=== PATIENT | female | born 1970 | race Two or more races ===

== ENCOUNTER 2025-03-19 02:33 | Emergency (ER) | payer MEDICAID ==
[~2025-03-19] VITALS: Ht 147.3 cm; Wt 60.5 kg
[2025-03-19 02:52] VITALS: O2SAT 98
--- NOTE | 2025-03-19 02:57 | ED.PDOC ---
GI ASSESSMENT HPI Comments 55-year-old female came to ER for constipation. Patient states last bowel movement was 2 days ago, and she has been constipated since then. Complaining also diffuse abdominal pain and lower back pains. States she still passes gas, but denies any nausea or vomiting. Patient's self-medicated with milk of magn esia but offered no relief. Chief Complaint: Constipation Time Seen by MD: 02:56 Reviewed Notes: Nurses Notes Allergies: Coded Allergies: No Known Drug Allergy (Verified Allergy, Unknown, 03/19/25) Information Source: Patient Mode of Arrival: Ambulatory Timing: Days Duration: Since onset Quality: Aching Vomitus: None Stool: Impaction Severity: Moderate Recent: None Recent Hx of: Abdominal Surgery Pain Location: Diffuse Associated sign and symptoms: Constipation, Abdominal Pain Review of Systems REVIEW OF SYSTEMS: No fever, no chills, or fatigue HEENT: No sore throat, no earache, no congestion, no neck pain. Cardiac: No chest pain. No palpitations. Lungs: No shortness of breath, no cough. GI: No nausea, no vomiting, no diarrhea, (+) constipation, (+) abdominal pain : No dysuria, frequency, or urgency. No hematuria. Musculoskeletal: No joint pain , no joint swelling, no extremity edema. Skin: No rash, no itching. Neuro: No headache, no dizziness, no weakness Vital Signs Vital Signs Date Time Temp Pulse Resp B/P (MAP) Pulse Ox O2 Delivery O2 Flow Rate FiO2 03/19/25 05:02 98.2 69 16 161/73 (102) 98.2 03/19/25 02:52 98 Physical Exam General: Awake, alert and oriented. No acute distress. Skin: Skin in warm, dry and intact. Appropriate color for ethnicity. Nailbeds pink with no cyanosis. HEENT: The head is normocephalic and atraumatic. Conjunctivae are clear without exudates or hemorrhage. Sclera is non-icteric. EOM are intact. No signs of nystagmus. Eyelids are normal in appearance without swelling or lesions. Oral mucosa is pink and moist Neck: The neck is supple with normal range of motion. No JVD. Cardiac: Heart rate and rhythm are normal. No murmurs, gallops, or rubs are auscultated. Respiratory: No signs of respiratory distress. Lung sounds are clear in all lobes bilaterally without rales, rhonchi, or wheezes. Abdominal: Abdomen is soft, non-tender without distention. Bowel sounds are present and normoactive in all four quadrants. Extremities: Upper and lower extremities are atraumatic in appearance without deformity or edema. Neurological: The patient is awake, alert and oriented to person, place, and time with normal speech. Speech is clear. There is no facial asymmetry. Psychiatric: Appropriate mood and affect. Good judgement and insight. No visual or auditory hallucinations. Past Medical History PAST MEDICAL HISTORY: Denies Surgical History: CHIP TESTER History: Denies all CHIP TESTER Hx Family History Family History: Reviewed,noncontributory to illness Social History Smoker: Non-Smoker Alcohol: Denies ETOH Use Drugs: Denies Drug Use Lives In: Home Was a procedure done? Was a procedure done?: No GI differential Dx Differential Diagnosis: Bowel Obstruction, Constipation, Diverticular disease, Gastritis/PUD, Gastroenteritis, Hernia, Pancreatitis, UTI X-Ray, Labs, Meds, VS Vital Signs Date Time Temp Pulse Resp B/P (MAP) Pulse Ox O2 Delivery O2 Flow Rate FiO2 03/19/25 05:02 98.2 69 16 161/73 (102) 98.2 03/19/25 02:52 98.4 90 18 161/100 (120) 98 98.4 Lab Test 03/19/25 03:30 Range/Units White Blood Count 14.4 H 4.4-10.8 10^3/uL Red Blood Count 5.02 4.0-5.20 10^6/uL Hemoglobin 15.2 12.2-16.2 g/dL Hematocrit 44.1 36.0-46.0 % Mean Corpuscular Volume 87.7 80.0-100.0 fL Mean Corpuscular Hemoglobin 30.2 28.0-32.0 pg Mean Corpuscular Hemoglobin Concent 34.4 32.0-36.0 g/dL Red Cell Distribution Width 13.8 11.8-14.3 % Platelet Count 379 140-450 10^3/uL Mean Platelet Volume 8.4 6.9-10.8 fL Neutrophils (%) (Auto) 78.1 37.0-80.0 % Lymphocytes (%) (Auto) 16.3 10.0-50.0 % Monocytes (%) (Auto) 4.8 0.0-12.0 % Eosinophils (%) (Auto) 0.2 0.0-7.0 % Basophils (%) (Auto) 0.6 0.0-2.0 % Neutrophils # (Auto) 11.3 H 1.6-8.6 10 ^3/uL Lymphocytes # (Auto) 2.4 0.4-5.4 10 ^3/uL Monocytes # (Auto) 0.7 0-1.3 10 ^3/uL Eosinophils # (Auto) 0 0-0.8 10 ^3/uL Basophils # (Auto) 0.1 0-0.2 10 ^3/uL Nucleated Red Blood Cells 0.1 % Sodium Level 138 136-145 mmol/L Potassium Level 4.4 3.5-5.1 mmol/L Chloride Level 101 98-107 mmol/L Carbon Dioxide Level 28 20-31 mmol/L Anion Gap 9 5-15 Blood Urea Nitrogen 11 9-23 mg/dL Creatinine 0.59 0.550-1.02 mg/dL Glomerular Filtration Rate Calc 105 >90 mL/min BUN/Creatinine Ratio 18.6 10.0-20.0 Serum Glucose 284 H 74-106 mg/dL Calcium Level 9.8 8.7-10.4 mg/dL PROCEDURE(s): KUB - KUB ABDOMEN SINGLE VIEW REASON: constipation ORDER NUMBER(s): [id number], ACCESSION NUMBER(s): [id number] Indication: constipation Technique: Single frontal view of the abdomen was obtained Comparison: None IMPRESSION: There are multiple air-fluid levels with dilated loops of small bowel measuring up to 3.6 cm concerning for small bowel obstruction. Moderate intracolonic stool is noted. Time of 1ST Reevaluation: 02:53 Reevaluation 1ST: Unchanged Patient Education/Counseling: Prognosis Family Education/Counseling: No Family Present Departure 1 Departure Time of Disposition: 03:20 Impression: Primary Impression: Abdominal pain Additional Impression: Constipation Disposition: 09 ADMITTED INPATIENT Additional Instructions: INSTRUCCIONES DE ABDI DE Urgencias Instrucciones: Marguerite atentamente todas las instrucciones proporcionadas en gem paquete. Aunque le hayan dado el abdi del Departamento de Emergencias, esto no significa que tenga un "certificado de buena too". Hoy no se ge realizado ningn diagnstico definitivo para efrem sntomas. Es posible que ests en proceso de desarrollar mita enfermedad grave. Es por eso que debe regresar al servicio de urgencias sin falta si presenta algn sntoma nuevo o que empeora (especialmente si efrem sntomas incluyen dolor en el pecho, dificultad para respirar, dolor abdominal, fiebre, dolor de nicole, confusin, dificultad para pete o caminar). Tambin es muy importante que consulte a un mdico de atencin primaria dentro de los prximos 3 a 5 willett para realizar un seguimiento. Si no puede conseguir mita romero, regrese al servicio de urgencias para mita nueva evaluacin. Dolor abdominal: instrucciones de cuidado Imagen de los cuatro cuadrantes del abdomen. Descripcin general El dolor abdominal tiene muchas causas posibles. Algunas no son graves y mejoran por s solas en unos willett. Otras requieren ms pruebas y tratamiento. Si el dolor contina o empeora, es necesario volver a examinarlo y es posible que necesite ms pruebas para averiguar qu es lo que est mal. Es posible que necesite mita ciruga para corregir el problema. No ignore los sntomas nuevos, bufyf fiebre, nuseas y vmitos, problemas para orinar, dolor que empeora y mareos. Estos pueden ser signos de un problema ms grave. Si no mejora, es posible que necesite ms pruebas o tratamiento. El mdico lo ge examinado cuidadosamente, ton pueden surgir problemas ms adelante. Si nota algn problema o sntomas nuevos, busque tratamiento mdico de inmediato . El seguimiento mdico es mita parte fundamental de powell tratamiento y powell seguridad. Asegrese de programar y acudir a todas las citas, y llame a powell mdico si tiene problemas. Tambin es mita buena idea saber los resultados de efrem pruebas y llevar mita lista de los medicamentos que julia. Small Piece Cutter puedes cuidarte en casa? Descansa hasta que te sientas mejor. Para prevenir la deshidratacin, timoteo abundante lquido. Elija agua y otros lquidos kerwin hasta que se sienta mejor. Si tiene mita enfermedad renal, cardaca o heptica y debe limitar los lquidos, consulte con powell mdico antes de aumentar la cantidad de lquidos que jamir. Cuando sientas ganas de comer, empieza con pequeas cantidades. No tomes alcohol, cafena ni alimentos picantes, calientes o con alto contenido de grasa malinda everette o dos willett. Evite los medicamentos antiinflamatorios buffy la aspirina, el ibuprofeno (Advil, Motrin) y el naproxeno (Aleve). Pueden causar malestar estomacal. Hable con powell mdico si julia aspirina a diario por otro problema de too. Cundo debes pedir ayuda? Llame al 911 en cualquier momento en que crea que puede necesitar atencin de emergencia. Por ejemplo, llame si: Te desmayaste (perdiste el conocimiento). Tiene heces de color marrn o con robin foster. Vomitas foster o lo que parecen posos de caf. Tienes un dolor intenso en el vientre. Llame a powell mdico ahora o busque atencin mdica inmediata si: El dolor empeora, especialmente si se concentra en mita ernesitne determinada del abdomen. Tiene fiebre nueva o ms abdi. Las heces son negras y parecen alquitrn, o tienen vetas de foster. Tienes sangrado vaginal inesperado. Tiene sntomas de mita infeccin del tracto urinario. Estos pueden incluir: Dolor al orinar. Orinar con ms frecuencia de lo habitual. Foster en la orina. Se siente mareado o aturdido, o siente que se puede desmayar. Preste atencin a los cambios en powell too y asegrese de comunicarse con powell mdico si: No ests mejorando buffy esperabas. Crditos para el dolor abdominal: instrucciones de cuidado Actualizado al: 2023 Autor: Personal de [employer] Polyethylene Glycol 3350 (Miralax) 17 Gm Pow 17 GM PO DAILY for 7 Days, #7 POW Prov: BRITTON DAVIS MD 03/19/25 Comments Critical Care Note Critical Care Time?: No Stability Stability form required: No Heart Score Heart Score: Heart Score Response (Comments) Value History N/A 0 EKG N/A 0 Age N/A 0 Risk Factors N/A 0 Troponin N/A 0 Total 0 I personally scribed for BRITTON DAVIS MD ([email or web address]) on 03/19/25 at 02:56. Electronically submitted by Holland Carr ([employer]). I personally scribed for BRITTON DAVIS MD ([email or web address]) on 03/19/25 at 03:20. Electronically submitted by Holland Carr ([employer]). BRITTON DAVIS MD Mar 19, 2025 02:56
--- NOTE | 2025-03-19 03:17 | DVH ---
Indication: constipation Technique: Single frontal view of the abdomen was obtained Comparison: None IMPRESSION: There are multiple air-fluid levels with dilated loops of small bowel measuring up to 3.6 cm concerni ng for small bowel obstruction. Moderate intracolonic stool is noted.
[2025-03-19 03:38] LABS: Basophils # (auto) 0.1 10 ^3/uL (0-0.2); Basophils % (auto) 0.6 % (0.0-2.0); Eosinophils # (auto) 0 10 ^3/uL (0-0.8); Eosinophils % (auto) 0.2 % (0.0-7.0); Hematocrit 44.1 % (36.0-46.0); Hemoglobin 15.2 g/dL (12.2-16.2); Lymphocytes # (auto) 2.4 10 ^3/uL (0.4-5.4); Lymphocytes % (auto) 16.3 % (10.0-50.0); Mean Corpuscular Hemoglobin 30.2 pg (28.0-32.0); Mean Corpuscular Hgb Conc. 34.4 g/dL (32.0-36.0); Mean Corpuscular Volume 87.7 fL (80.0-100.0); Monocytes # (auto) 0.7 10 ^3/uL (0-1.3); Monocytes % (auto) 4.8 % (0.0-12.0); Neutrophils # (auto) 11.3 10 ^3/uL (1.6-8.6); Neutrophils % (auto) 78.1 % (37.0-80.0); Nucleated Red Blood Cells % 0.1 %; Platelet Count (auto) 379 10^3/uL (140-450); Red Blood Cells 5.02 10^6/uL (4.0-5.20); Red Cell Distribution Width 13.8 % (11.8-14.3); White Blood Cell 14.4 10^3/uL (4.4-10.8)
[2025-03-19 03:49] LABS: Chloride 101 mmol/L (98-107); Potassium 4.4 mmol/L (3.5-5.1); Sodium 138 mmol/L (136-145)
[2025-03-19 03:50] LABS: Anion Gap 9 (5-15); Carbon Dioxide 28 mmol/L (20-31)
[2025-03-19 03:51] LABS: Calcium 9.8 mg/dL (8.7-10.4)
[2025-03-19 03:55] LABS: BUN/Creatinine Ratio 18.6 (10.0-20.0); Blood Urea Nitrogen 11 mg/dL (9-23)
[2025-03-19 04:02] LABS: Glucose 284 mg/dL (74-106)
[2025-03-19 05:02] VITALS: BP 161/73; PULSE 69; RESP 16; TEMP 98.2
[2025-03-19] MEDS: ACETAMINOPHEN 500 MG TAB or CAP PO ONE (05:09)
[2025-03-19] MEDS: SODIUM CHLORIDE 0.9% 1,000 ML IV ONE (05:10)
--- NOTE | 2025-03-19 05:19 | DVH ---
EXAM: CT Abdomen and Pelvis Without Intravenous Contrast CLINICAL INDICATION: Pain TECHNIQUE: Axial computed tomography images of the abdomen and pelvis without intravenous contrast. This CT exam was performed using one or more of the following dose reduction techniques: automated exposure control, adjustment of the mA and/or kV according to patient size, and/or use of iterative r econstruction technique. COMPARISON: No relevant prior studies available. FINDINGS: LUNG BASES: Unremarkable. No mass. No consolidation. MEDIASTINUM: Small esophageal hiatal hernia. ABDOMEN: LIVER: Hepatomegaly with fatty infiltration. GALLBLADDER AND BILE DUCTS: Unremarkable. No calcified stones. No ductal dilation. PANCREAS: Unremarkable. No ductal dilation. SPLEEN: Unremarkable. No splenomegaly. ADRENALS: Unremarkable. No mass. KIDNEYS AND URETERS: Unremarkable. No obstructing stones. No hydronephrosis. STOMACH AND BOWEL: Constipation with suggestion of fecal impaction of the rectum. No obstruction. No mucosal thickening. PELVIS: APPENDIX: No findings to suggest acute appendicitis. BLADDER: Unremarkable. No stones. REPRODUCTIVE: Unremarkable as visualized. ABDOMEN and PELVIS: INTRAPERITONEAL SPACE: Unremarkable. No free air. No significant fluid collection. BONES/JOINTS: No acute fracture. No dislocation. SOFT TISSUES: Umbilical hernia containing fat. VASCULATURE: Unremarkable. No abdominal aortic aneurysm. LYMPH NODES: Unremarkable. No enlarged lymph nodes. IMPRESSION: 1. Constipation with suggestion of fecal impaction of the rectum. 2. Small esophageal hiatal hernia. 3. Hepatomegaly with fatty infiltration. 4. Umbilical hernia containing fat.
[2025-03-19] MEDS ORDERED: POLY335015 PO (05:23)
== END 2025-03-19 05:58 | disposition home or self-care (01) ==
LOC: ER 02:33
DX: K59.00 Constipation, unspecified (principal); R10.84 Generalized abdominal pain; M54.50 Low back pain, unspecified
CPT/HCPCS: 36415; 74018; 74176; 80048; 85025